=== PATIENT | male | born 1945 | race Caucasian/White ===

== ENCOUNTER 2019-02-04 03:53 | Inpatient (IN) ==
[2019-01-30 10:31] LABS: URINE SOURCE CLEAN CATCH
--- NOTE | 2019-01-30 10:52 | EKG Report ---
Test Performed on : 01/30/2019 10:07:44 AM Test Reason : PAT Blood Pressure : / mmHG Vent. Rate : 051 BPM Atrial Rate : 051 BPM P-R Int : 162 ms QRS Dur : 094 ms QT Int : 428 ms P-R-T Axes : 063 068 043 degrees QTc Int : 394 ms Sinus bradycardia. Nonspecific ST and T wave abnormality Abnormal ECG When compared with ECG of 13-SEP-2017 08:11, Nonspecific T wave abnormality, worse in Lateral leads Confirmed by Tom CAR, Etienne Duarte ([id number]) on 01/31/2019 7:43:10 AM
[2019-01-30 10:54] LABS: BILIRUBIN URINE NEGATIVE (NEGATIVE); BLOOD URINE NEGATIVE (NEGATIVE); COLOR YELLOW; GLUCOSE URINE NEGATIVE (NEGATIVE); KETONE URINE NEGATIVE (NEGATIVE); LEUKOCYTES URINE NEGATIVE (NEGATIVE); NITRITE URINE NEGATIVE (NEGATIVE); PH URINE 7.5; PROTEIN URINE NEGATIVE (NEGATIVE); SP GRAVITY URINE 1.019; TURBIDITY URINE CLEAR (CLEAR); UROBILINOGEN URINE NORMAL (NORMAL)
[2019-01-30 10:56] LABS: BASO# 0.02 X1000 (0.0-0.2); BASO% 0.2 % (0.0-0.8); EOS# 0.11 X1000 (0.0-0.7); EOS% 1.2 % (0.0-10.0); HEMOGLOBIN 16.7 g/dL (14.0-18.0); LYMPH# 1.76 X1000 (1.2-3.4); LYMPH% 19.1 % (20.5-51.1); MCH 30.4 PG (27-31); MCHC 33.4 g/dL (33-37); MCV 90.9 FL (81-99); MONO# 0.76 X1000 (0.11-0.59); MONO% 8.3 % (1.7-9.3); MPV 12.5 FL (7.4-10.4); NEUT# 6.55 X1000 (1.4-6.5); NEUT% 71.2 % (42.2-75.2); PLT 197 X1000 (130-400); RDW 13.6 % (11.5-14.5); UR EPITHELIAL CELLS <10 /HPF (<10); URINE BACTERIA NEGATIVE /HPF; URINE RBC <10 /HPF (<10); URINE WBC <10 /HPF (<10)
[2019-01-30 10:57] LABS: INR 1.06; PROTIME 13.9 Seconds (11.0-16.0); PTT 28.8 Seconds (22.3-41.8)
[2019-01-30 11:05] LABS: HEMOGLOBIN A1C 5.8 % (4.8-6.0)
[2019-01-30 12:01] LABS: AGAP 13; ALBUMIN 4.3 g/dL (3.5-5.0); BUN 20 mg/dL (8-22); CHLORIDE 95 mmol/L (98-107); COSMO 283; CREATININE 1.1 mg/dL (0.7-1.2); ESTIMATED GFR > 60; GLUCOSE 91 mg/dL (70-104); SODIUM 141 mmol/L (136-145); TCO2 33 mmol/L (25-35)
[2019-02-04] MEDS ORDERED: LR 1,000 ML ONE (08:42)
[2019-02-04] MEDS ORDERED: PEPCID ONE (08:47)
[2019-02-04] MEDS ORDERED: REGLAN ONE (08:47)
[2019-02-04] MEDS ORDERED: COLACE ONE (08:47)
[2019-02-04] MEDS ORDERED: LYRICA ONE (08:48)
[2019-02-04] MEDS ORDERED: CELEBREX ONE (08:48)
[2019-02-04] MEDS ORDERED: KEFZOL 1 GM/D5W 2 GM/100 ML IVPB ONE (08:48)
[2019-02-04] MEDS ORDERED: DIPRIVAN 1% 500 MG/50 ML BOTTLE ONE (09:19)
[2019-02-04] MEDS ORDERED: VERSED ONE (09:20)
[2019-02-04] MEDS ORDERED: DURAMORPH ONE (09:23)
[2019-02-04] MEDS ORDERED: TORADOL ONE (09:23)
[2019-02-04] MEDS ORDERED: MARCAINE 0.25% PF ONE (09:23)
[2019-02-04] MEDS ORDERED: SODIUM CHLORIDE 0.9% ONE (09:23)
[2019-02-04] MEDS ORDERED: CYKLOKAPRON 1,000 MG/NS 1,000 MG/100 ML IVPB ONE (09:23)
[2019-02-04] MEDS ORDERED: EXPAREL 1.3% ONE (09:24)
[2019-02-04] MEDS ORDERED: FENTANYL ONE (09:45)
[2019-02-04] MEDS ORDERED: NEO-SYNEPHRINE ONE (10:17)
[2019-02-04] MEDS ORDERED: ROBINUL ONE ×2 (10:23→11:08)
[2019-02-04] MEDS ORDERED: DIPRIVAN 1% ONE (11:14)
[2019-02-04] MEDS ORDERED: OFIRMEV 1000 MG/ISOTONIC SOLN 1,000 MG/100 ML BOTTLE ONE (11:32)
[2019-02-04] MEDS ORDERED: DECADRON ONE (11:32)
[2019-02-04 11:35] LABS: URINE SOURCE CATH
[2019-02-04 11:44] LABS: BILIRUBIN URINE NEGATIVE (NEGATIVE); BLOOD URINE NEGATIVE (NEGATIVE); COLOR YELLOW; GLUCOSE URINE NEGATIVE (NEGATIVE); KETONE URINE NEGATIVE (NEGATIVE); LEUKOCYTES URINE NEGATIVE (NEGATIVE); NITRITE URINE NEGATIVE (NEGATIVE); PH URINE 6.5; PROTEIN URINE TRACE mg/dL (NEGATIVE); SP GRAVITY URINE 1.026; TURBIDITY URINE CLEAR (CLEAR); UROBILINOGEN URINE NORMAL (NORMAL)
[2019-02-04 11:46] LABS: UR EPITHELIAL CELLS <10 /HPF (<10); URINE BACTERIA NEGATIVE /HPF; URINE RBC <10 /HPF (<10); URINE WBC <10 /HPF (<10)
[2019-02-04] MEDS ORDERED: NS 1,000 ML ONE (12:16)
[2019-02-04] MEDS: NS 1,000 ML IV SCH ×2 (13:00→21:13)
[2019-02-04] MEDS ORDERED: AMBIEN PO PRN (13:30)
[2019-02-04] MEDS ORDERED: ZOFRAN IV PRN (13:30)
[2019-02-04] MEDS ORDERED: OXY IR PO PRN ×2 (13:30)
[2019-02-04] MEDS ORDERED: ZOFRAN ODT PO PRN (13:30)
[2019-02-04] MEDS ORDERED: MILK OF MAGNESIA PO PRN (13:30)
[2019-02-04] MEDS ORDERED: MORPHINE IV PRN ×3 (13:30)
[2019-02-04] MEDS ORDERED: FLU VACCINE IM ONE (13:47)
--- NOTE | 2019-02-04 13:49 | OPERATIVE NOTE ---
PROCEDURE DATE: 02/04/2019 PREOPERATIVE DIAGNOSIS: Right hip degenerative joint disease. POSTOPERATIVE DIAGNOSIS: Right hip degenerative joint disease. PROCEDURE PERFORMED: Right anterior total hip arthroplasty using [facility] size 11 lateral offset stem with a +0 36 mm head, a 54 mm hemispherical shell with a 40 mm and 30 mm screw, and a 36 mm inside diameter liner. ANESTHESIA: Spinal. SURGEON: Zoran Danielson MD. DATA GOVERNANCE CONSULTANT: Baldo Montano. COMPLICATIONS: None. ESTIMATED BLOOD LOSS: Minimal. DESCRIPTION OF PROCEDURE: The patient was brought to the operative suite and placed on the OSI table in the usual position for right hip, and then the right hip was prepped and draped in usual sterile fashion. A longitudinal incision was made beginning 3 cm distal and 3 cm lateral to the anterior superior iliac spine, seen distally and slightly laterally at 8 cm, and dissected sharply through skin and subcutaneous tissue well away from the ischemia is dissected sharply through skin and subcutaneous tissue down to the tensor fascia. Tensor fascia was incised and dissected bluntly down deep to the tensor fascia. Deep tensor fascia was incised and circumflex vessels were electrocauterized exposing the anterior capsule. A T-capsulotomy was performed exposing the femoral neck. Femoral neck cut was made with the oscillating saw. The femoral head was removed with a power corkscrew. The labrum was resected. The acetabulum was serially reamed to a 54 to accept a 54 cup. The 54 cup was then driven into place in the proper amount of inclination and anteversion, and then two 6.5 screws were placed 40 mm superiorly and 30 mm posterior superiorly. Then, the 36 mm inside diameter liner was locked into place. Attention was then directed to the femur. It was externally rotated, extended, adducted, and elevated with the hook on the OSI bed. The lateral neck was rongeured. The canal was serially broached to a size 11. A size 11 high offset stem was with a +0 neck length was trialed, and found be excellent, fit and fill stem. Excellent leg length and offset. The trial was then removed. The definitive stem was seated on the femur, and the ceramic head was seated on the Cintron taper. The hip was reduced. It was again found to be in excellent position. The hip was copiously infiltrated with Exparel, including the posterior capsule, anterior capsule, anterior musculature, and subcutaneous tissue. The anterior capsule was repaired with 0 V-Loc. Hip was copiously irrigated with normal saline containing irrigant and Vashe irrigation. The tensor fascia was closed with a running 0 V-Loc as well. The skin edge was approximated with 2-0 Vicryl, and closed with 4-0 Monocryl and Prineo sterile dressing was applied. The patient tolerated the procedure well without complication. At the end the procedure, all counts were correct x2. The patient was transferred to the recovery room in stable condition. cc: Zoran Danielson MD [facility]
[2019-02-04] MEDS ORDERED: CYKLOKAPRON 1,000 MG in NS 100 ML IV ONE (16:00)
[2019-02-04] MEDS: ULTRAM PO SCH ×2 (17:33→23:36)
[2019-02-04] MEDS: TYLENOL PO SCH ×2 (17:33→23:37)
[2019-02-04] MEDS: KEFZOL 2 GM/D5W 2 GM/50 ML IVPB IV SCH (17:45)
[2019-02-04] MEDS: PERIDEX MT SCH (21:11)
[2019-02-04] MEDS: LYRICA PO SCH (21:12)
[2019-02-04] MEDS: CELEBREX PO SCH (21:12)
[2019-02-04] MEDS: COLACE PO SCH (21:12)
[2019-02-05] MEDS: KEFZOL 2 GM/D5W 2 GM/50 ML IVPB IV SCH (01:34)
[2019-02-05] MEDS: TYLENOL PO SCH ×2 (05:50→10:53)
[2019-02-05] MEDS: ULTRAM PO SCH ×2 (05:50→10:53)
[2019-02-05] MEDS ORDERED: XARELTO PO SCH (06:00)
[2019-02-05] MEDS: NS 1,000 ML IV SCH (06:33)
[2019-02-05 06:40] LABS: HEMATOCRIT 38.8 % (42.0-52.0); HEMOGLOBIN 13.3 g/dL (14.0-18.0)
[2019-02-05 07:12] LABS: AGAP 11; BUN 19 mg/dL (8-22); CALCIUM 7.8 mg/dL (8.8-10.2); CHLORIDE 102 mmol/L (98-107); COSMO 287; ESTIMATED GFR > 60; GLUCOSE 123 mg/dL (70-104); SODIUM 142 mmol/L (136-145); TCO2 29 mmol/L (25-35)
[2019-02-05 07:49] VITALS: BP 121/77
[2019-02-05] MEDS ORDERED: SALINE LOCK IV FLUID XX ONE (08:33)
[2019-02-05] MEDS ORDERED: HYDROCHLOROTHIAZIDE PO SCH (09:00)
[2019-02-05] MEDS ORDERED: DIOVAN PO SCH (09:00)
[2019-02-05] MEDS ORDERED: BUMEX PO SCH (09:00)
[2019-02-05] MEDS ORDERED: PEPCID PO SCH (09:00)
[2019-02-05] MEDS ORDERED: DECADRON IV ONE (09:00)
[2019-02-05] MEDS ORDERED: KLOR-CON PO SCH (09:00)
[2019-02-05] MEDS: PERIDEX MT SCH (10:49)
[2019-02-05] MEDS: LYRICA PO SCH (10:50)
[2019-02-05] MEDS: CELEBREX PO SCH (10:50)
[2019-02-05] MEDS: COLACE PO SCH (10:50)
--- NOTE | 2019-02-05 22:32 | DISCHARGE SUMMARY ---
ADMISSION DATE: 02/04/2019 DISCHARGE DATE: 02/05/2019 DISCHARGE DIAGNOSIS: Right hip degenerative joint disease status post right total knee arthroplasty. DISCHARGE MEDICATIONS: See discharge medication list. DISPOSITION: The patient discharged home with home health physical therapy. Instructed to return for any signs of infection, deep venous thrombosis. Instructed to return to see Dr. Danielson next . HOSPITAL COURSE: On the day of admission, patient underwent a right anterior total hip arthroplasty. His postop course is unremarkable. At discharge, he is afebrile, tolerating his diet. Ambulating well with physical therapy. His wound is clean, dry, and intact without signs of infection. His hematocrit is stable at 38.8. He is discharged home in stable condition with instructions to follow up as described above. cc: Zoran Danielson MD
== END 2019-02-05 11:49 | disposition home health service (06) | DRG 470 ==
LOC: SURHOLD 03:53 → 4N 09:44
PROVIDERS: ADMIT Orthopaedic Surgery; ATTEND Orthopaedic Surgery